=== PATIENT | male | born 1985 | race Caucasian/White ===

== ENCOUNTER 2020-07-06 08:32 | Emergency (ER) | payer SELFPAY ==
[~2020-07-06] VITALS: Ht 167.6 cm; Wt 68.0 kg
--- NOTE | 2020-07-06 08:35 | NUR ---
PT [facility] [address] C/O BIZARRE BEHAVIOR "HE'S KNOCKING DOORS" PT IS AAOX3, NOT IN RESPIRATORY DISTRESS, V/S STABLE, KEPT RESTED AND COMFORTABLE. SITTER AT BEDSIDE. WILL CONTINUE TO MONITOR.
--- NOTE | 2020-07-06 08:50 | NUR ---
URINE SPECIMEN COLLECTED AND SENT TO LAB.
--- NOTE | 2020-07-06 09:00 | NUR ---
SEEN AND EXAMINED BY .
--- NOTE | 2020-07-06 09:05 | NUR ---
PT STATED HE IS NOT SUICIDAL AND HE JUST WANT TO GO HOME. ER MD AWARE.
[2020-07-06 09:55] VITALS: BP 117/70
--- NOTE | 2020-07-06 09:55 | NUR ---
Patient discharged to home in stable condition. Written and verbal after care instructions given. Patient verbalizes understanding of instruction.
== END 2020-07-06 09:55 | disposition home or self-care (01) ==
LOC: ER 08:34
DX: F19.10 Other psychoactive substance abuse, uncomplicated (principal)